=== PATIENT | female | born 1985 | race Caucasian/White ===

== ENCOUNTER 2017-02-07 15:36 | Emergency (ER) | payer OTHER ==
[~2017-02-07] VITALS: Ht 165.1 cm; Wt 99.7 kg
[~2017-02-07 15:36] MED LIST: ALBUTEROL2.5 MG/3 M IH; AMOXICILLIN875 MG PO; AZITHROMYCIN250 MG PO; ERYTHROMYC1 APPLICAT LEFT EYE; FERROUS SULFAT325 MG PO; IBUPROFEN800 MG PO; PEPCID20 MG PO; PERCOCET 5/31 TABLET PO; REGLAN10 MG PO; Tylenol Extra Streng PO; ZOFRAN4 MG PO
[2017-02-07] MEDS ORDERED: NORCO 7.5/321 TABLET PO (16:51)
[2017-02-07] MEDS ORDERED: INDOCIN50 MG PO (16:51)
[2017-02-07] MEDS ORDERED: LIDODERM 5% P1 PATCH TD (16:51)
[2017-02-07 17:02] VITALS: BP 129/82
== END 2017-02-07 16:52 | disposition home or self-care (01) ==
LOC: EME 15:36
DX: S39.012A Strain of muscle, fascia and tendon of lower back, initial encounter (principal); X58.XXXA Exposure to other specified factors, initial encounter; F17.200 Nicotine dependence, unspecified, uncomplicated
CPT/HCPCS: 99281; 99284; J3010

== ENCOUNTER 2017-12-18 01:05 | Emergency (ER) | payer OTHER ==
[~2017-12-18] VITALS: Ht 165.1 cm; Wt 98.7 kg
[~2017-12-18 01:05] MED LIST changes: +INDOCIN50 MG PO; +LIDODERM 5% P1 PATCH TD; +NORCO 7.5/321 TABLET PO
[2017-12-18] MEDS ORDERED: BACTRIM,SEPT1 TABLET PO (02:22)
[2017-12-18 02:37] VITALS: BP 130/80
== END 2017-12-18 02:38 | disposition home or self-care (01) ==
LOC: EME 01:05
DX: L02.412 Cutaneous abscess of left axilla (principal); L02.411 Cutaneous abscess of right axilla; B95.62 Methicillin resistant Staphylococcus aureus infection as the cause of diseases classified elsewhere; Z91.040 Latex allergy status; Z91.013 Allergy to seafood; Z88.1 Allergy status to other antibiotic agents; Z88.8 Allergy status to other drugs, medicaments and biological substances
CPT/HCPCS: 99281; 99283